=== PATIENT | male | born 1955 | race Caucasian/White ===

== ENCOUNTER 2016-09-01 00:54 | Inpatient (IN) | payer OTHER ==
[~2016-09-01] VITALS: Ht 182.9 cm; Wt 101.7 kg
[2016-09-01] MEDS ORDERED: ADENOSINE 6 MG/2 ML INJ IV ONE ×2 (01:13→01:45)
[2016-09-01 01:47] LABS: Basophils # (auto) 0 uL; Basophils % (auto) 0.3 % (0.0-2.0); DEFINITIVE VIEW TRANSMISSION; Eosinophils # (auto) 0 uL; Eosinophils % (auto) 0.3 % (0.0-7.0); Hematocrit 32.5 % (41.0-53.0); Hemoglobin 10.3 g/dL (13.5-17.5); Lymphocytes # (auto) 2.9 uL; Lymphocytes % (auto) 35.3 % (10.0-50.0); Mean Corpuscular Hemoglobin 34.4 pg (28.0-32.0); Mean Corpuscular Hgb Conc. 31.8 g/dL (32.0-36.0); Mean Corpuscular Volume 107.9 fL (80.0-100.0); Mean Platelet Volume 8.3 fL (7.4-10.4); Monocytes # (auto) 0.5 uL; Monocytes % (auto) 6.2 % (0.0-12.0); Neutrophils # (auto) 4.8 uL; Neutrophils % (auto) 57.9 % (37.0-80.0); Platelet Count (auto) 164 10^3/uL (140-450); Red Cell Distribution Width 19.2 % (11.6-16.0); SUSPECT VIEW TRANSMISSION; White Blood Cell 8.3 10^3/uL (4.4-10.8)
[2016-09-01 02:43] LABS: Albumin 3.5 g/dL (3.4-5.0); Anion Gap 13 (5-15); Aspartate Aminotransferase 19 U/L (15-37); Blood Urea Nitrogen 18 mg/dL (7-18); Calcium 8.9 mg/dL (8.5-10.1); Carbon Dioxide 23 mmol/L (21-32); Chloride 105 mmol/L (98-107); GFR African American 124 mL/min; GFR Non-African American 102 mL/min; Glucose 212 mg/dL (74-106); Magnesium 2.2 mg/dL (1.6-2.6); Potassium 3.9 mmol/L (3.5-5.1); Sodium 141 mmol/L (136-145)
[2016-09-01 02:48] LABS: Alkaline Phosphatase 99 U/L (45-117); Bilirubin, Total 0.9 mg/dL (0.2-1.0); Total Protein 6.3 g/dL (6.4-8.2)
[2016-09-01] MEDS ORDERED: DEXA0.5E4 PO (04:20)
[2016-09-01] MEDS ORDERED: KEP500T PO (04:20)
[2016-09-01] MEDS ORDERED: SULF800T7 PO (04:20)
[2016-09-01] MEDS ORDERED: LEVO100T8 PO (04:20)
[2016-09-01] MEDS: SODIUM CHLORIDE 0.9% 1,000 ML IV SCH ×2 (06:27→19:30)
[2016-09-01] MEDS ORDERED: SODIUM CHLORIDE 0.9% 1,000 ML IV ONE (06:30)
[2016-09-01] MEDS ORDERED: DEXTROSE (50%) 50ML SYRG IV PRN (06:30)
[2016-09-01] MEDS ORDERED: TEMAZEPAM 15 MG CAP PO PRN (06:30)
[2016-09-01] MEDS ORDERED: MORPHINE SULF INJ 2 MG/ML SYRINGE 1ML IV PRN ×2 (06:30)
[2016-09-01] MEDS ORDERED: LORazepam 0.5 MG TAB PO PRN (06:30)
[2016-09-01] MEDS ORDERED: ACETAMINOPHEN 500 MG TAB PO PRN (06:30)
[2016-09-01] MEDS ORDERED: HYDROcodone-ACET 5/325MG TAB PO PRN (06:30)
[2016-09-01] MEDS ORDERED: LACTULOSE 20Gm/30ML SOLN PO PRN (06:30)
[2016-09-01] MEDS ORDERED: PROCHLORPERAZINE EDISYLATE 5 MG/ML 2ML VIAL IV PRN (06:30)
[2016-09-01] MEDS ORDERED: NITROGLYCERIN 0.4 MG SL TAB SL PRN (06:30)
[2016-09-01] MEDS: LEVOTHYROXINE SODIUM 100 MCG TAB PO SCH (07:00)
[2016-09-01] MEDS: ACCU-CHEK COMFORT CURVE STRIP VI SCH ×4 (07:00→22:29)
[2016-09-01] MEDS: InsuLIN REG 1unit/0.01ml Soln (100units/ml) SC SCH ×4 (07:00→22:00)
[2016-09-01] MEDS ORDERED: DEXAMETHASONE 0.5MG/5ML ORAL ELIX PO SCH (10:00)
[2016-09-01] MEDS: LEVETIRACETAM 500 MG TAB PO SCH ×2 (10:30→22:53)
[2016-09-01] MEDS: METOPROLOL TARTRATE 25 MG TAB PO SCH ×2 (10:30→11:45)
[2016-09-01] MEDS: NITROGLYCERIN 0.2MG/HR TOPICAL PATCH TD SCH (10:30)
[2016-09-01] MEDS: ASPirin 81 mg TAB PO SCH (10:30)
[2016-09-01] MEDS ORDERED: POTASSIUM CHL 20 Meq TABLET PO ONE (14:00)
[2016-09-01 22:00] VITALS: BP 85/52
[2016-09-01] MEDS: ATORVASTATIN 20 MG TAB PO SCH (22:53)
[2016-09-01] MEDS: DEXAMETHASONE 4 MG TAB PO SCH (22:53)
[2016-09-01 23:15] VITALS: BP 85/52
[2016-09-02] VITALS (8 sets, daily range): BP systolic 80–95; BP diastolic 49–56
[2016-09-02] MEDS: ACCU-CHEK COMFORT CURVE STRIP VI SCH ×4 (06:11→21:44)
[2016-09-02] MEDS: LEVOTHYROXINE SODIUM 100 MCG TAB PO SCH (06:11)
[2016-09-02] MEDS: InsuLIN REG 1unit/0.01ml Soln (100units/ml) SC SCH ×4 (06:11→21:37)
[2016-09-02 07:05] LABS: Basophils # (auto) 0 uL; Basophils % (auto) 0.3 % (0.0-2.0); DEFINITIVE VIEW TRANSMISSION; Eosinophils # (auto) 0 uL; Eosinophils % (auto) 0.2 % (0.0-7.0); Hematocrit 20.9 % (41.0-53.0); Lymphocytes # (auto) 0.4 uL; Lymphocytes % (auto) 12.3 % (10.0-50.0); Mean Corpuscular Hemoglobin 34.8 pg (28.0-32.0); Mean Corpuscular Volume 105.3 fL (80.0-100.0); Mean Platelet Volume 7.8 fL (7.4-10.4); Monocytes # (auto) 0 uL; Monocytes % (auto) 1.7 % (0.0-12.0); Neutrophils # (auto) 2.5 uL; Neutrophils % (auto) 85.5 % (37.0-80.0); Platelet Count (auto) 76 10^3/uL (140-450); Red Cell Distribution Width 18.9 % (11.6-16.0); White Blood Cell 2.9 10^3/uL (4.4-10.8)
[2016-09-02 07:27] LABS: Albumin 2.5 g/dL (3.4-5.0); BUN/Creatinine Ratio 30.8; Bilirubin, Total 0.5 mg/dL (0.2-1.0); Calcium 6.9 mg/dL (8.5-10.1); Potassium 3.7 mmol/L (3.5-5.1); Total Protein 4.4 g/dL (6.4-8.2)
[2016-09-02 07:43] LABS: Hemoglobin 6.9 g/dL (13.5-17.5)
[2016-09-02 08:19] LABS: Hematocrit 23.5 % (41.0-53.0); Hemoglobin 7.8 g/dL (13.5-17.5)
[2016-09-02] MEDS: ASPirin 81 mg TAB PO SCH (09:52)
[2016-09-02] MEDS: NITROGLYCERIN 0.2MG/HR TOPICAL PATCH TD SCH (09:53)
[2016-09-02] MEDS: METOPROLOL TARTRATE 25 MG TAB PO SCH ×2 (09:53→21:36)
[2016-09-02] MEDS: SULFAMETHOX W/TRIMETH(800/160MG) DS TAB PO SCH ×2 (09:54→10:00)
[2016-09-02] MEDS: LEVETIRACETAM 500 MG TAB PO SCH ×2 (09:54→21:45)
[2016-09-02] MEDS: SODIUM CHLORIDE 0.9% 1,000 ML IV SCH ×2 (10:04→22:27)
[2016-09-02] MEDS: DEXAMETHASONE 4 MG TAB PO SCH ×2 (10:04→21:36)
[2016-09-02] MEDS: ATORVASTATIN 20 MG TAB PO SCH (21:44)
[2016-09-03 02:05] VITALS: BP 95/53
== END 2016-09-03 02:09 | disposition short-term general hospital (02) | DRG 309 ==
LOC: ER 00:54 → EDBD 00:54 → TELE 00:55 → TELE-WESTW 21:37
PROVIDERS: ADMIT Internal Medicine; ATTEND Family Medicine
DX: I47.1 Supraventricular tachycardia (principal); C71.9 Malignant neoplasm of brain, unspecified; G81.94 Hemiplegia, unspecified affecting left nondominant side; D64.9 Anemia, unspecified; T45.1X5A Adverse effect of antineoplastic and immunosuppressive drugs, initial encounter; R63.4 Abnormal weight loss; R73.9 Hyperglycemia, unspecified; E03.9 Hypothyroidism, unspecified; Z86.711 Personal history of pulmonary embolism; Z86.718 Personal history of other venous thrombosis and embolism; Y92.89 Other specified places as the place of occurrence of the external cause; Z68.30 Body mass index [BMI] 30.0-30.9, adult; Z91.041 Radiographic dye allergy status; Z79.899 Other long term (current) drug therapy
CPT/HCPCS: 36415; 71010; 80053; 80061; 82550; 82962; 83036; 83735; 84484; 85014; 85018; 85025; 85379; 85652; 86141; 87081; 93005; 96374; 99291; J0153